=== PATIENT | female | born 1995 | race Caucasian/White ===

== ENCOUNTER 2017-02-02 20:18 | Emergency (ER) | payer OTHER ==
[~2017-02-02] VITALS: Ht 162.6 cm; Wt 70.8 kg
[2017-02-02 20:28] VITALS: Ht 162.6 cm; Wt 70.8 kg
[2017-02-03] MEDS ORDERED: ONDANSETRON 4 MG INJ IV STA (00:04)
[2017-02-03] MEDS ORDERED: FAMOTIDINE 20 MG INJ IV STA (00:04)
[2017-02-03] MEDS ORDERED: SOD CHLORIDE 0.9% 1,000 ML IV STA (00:04)
[2017-02-03 00:19] LABS: URINE BLOOD (Dip) POC Negative (NEGATIVE)
[2017-02-03 00:27] LABS: ADD SCAN DIFF NO
[2017-02-03] MEDS ORDERED: ACETAMINOPHEN 325 MG TAB PO ONE (00:30)
[2017-02-03 00:35] LABS: ADD UMIC YES; URINE BILIRUBIN (Dip) 1+ (NEGATIVE); URINE BLOOD (Dip) NEGATIVE (NEGATIVE); URINE COLOR YELLOW (YELLOW); URINE GLUCOSE (Dip) NEGATIVE (NEGATIVE); URINE KETONES (Dip) 15 (NEGATIVE); URINE LEUKOCYTE ESTERASE (Dip) TRACE (NEGATIVE); URINE NITRITE (Dip) NEGATIVE (NEGATIVE); URINE TOTAL PROTEIN (Dip) TRACE (NEGATIVE); URINE UROBILINOGEN (Dip) 1.0 E.U./dL (0.1-1.0)
[2017-02-03 00:52] LABS: ICTOTEST NEGATIVE (NEGATIVE)
[2017-02-03 00:53] LABS: BACTERIA,URINE RARE; MUCUS,URINE MODERATE; SQUAMOUS EPITHELIAL CELL,UR FEW; URINE RBCS 0-2 /HPF (0)
[2017-02-03 00:56] LABS: BASOPHILS % 0.4 % (0.0-2.0); EOSINOPHILS # 0.2 10^3/ul (0.0-0.5); EOSINOPHILS % 2.2 % (0.0-7.0); HEMATOCRIT 38.3 % (37.0-47.0); HEMOGLOBIN 11.9 g/dl (12.0-16.0); LYMPHOCYTES # 1.8 10^3/ul (0.8-2.9); LYMPHOCYTES % 22.7 % (18.0-55.0); MEAN CORPUSCULAR HEMOGLOBIN 24.1 pg (29.0-33.0); MEAN CORPUSCULAR HGB CONC 31.1 g/dl (32.0-37.0); MEAN CORPUSCULAR VOLUME 77.5 fl (72.0-104.0); MEAN PLATELET VOLUME 9.4 fl (7.4-10.4); MONOCYTE # 1.1 10^3/ul (0.3-0.9); MONOCYTES % 13.8 % (0.0-13.0); NEUTROPHIL # 4.7 10^3/ul (1.6-7.5); NEUTROPHILS % 60.6 % (30.0-74.0); PLATELET COUNT 403 10^3/UL (140-415); RED BLOOD COUNT 4.94 10^6/ul (4.20-5.40); WHITE BLOOD COUNT 7.7 10^3/ul (4.8-10.8)
[2017-02-03 00:57] LABS: ALBUMIN/GLOBULIN RATIO 1.14; BILIRUBIN,INDIRECT 0.1 mg/dl (0-1.1); BILIRUBIN,TOTAL 0.1 mg/dl (0.2-1.3); CALCIUM 8.6 mg/dl (8.4-10.2); CREATININE 0.51 mg/dl (0.44-1.00); POTASSIUM 3.3 mmol/L (3.5-5.1); TOTAL PROTEIN 7.5 g/dl (6.1-8.1)
--- NOTE | 2017-02-03 01:45 | RADRPT ---
PROCEDURE: US abdomen limited right upper quadrant. CLINICAL INDICATION: Positive De La Cruz's sign, 9 weeks TECHNIQUE: Multiple real-time images were acquired of the patient's right upper quadrant of the ab domen utilizing a high resolution transducer. COMPARISON: None FINDINGS: No gallstones are identified within the gallbladder. There is no pericholecystic fluid or gallbladder wall thickening. The common bile duct measures 3.1 mm in maximal dimension. No free fluid is identified. No abnormality is seen in the liver. The pancreas is not seen due to b owel gas. The visualized inferior vena cava is unremarkable. The right kidney measures 11.2 cm in length and is unremarkable. IMPRESSION: Pancreas not seen. Otherwise unremarkable examination. RPTAT: HJES .Mt Hill MD, Date Time Electronically viewed and signed by .Mt Hill MD, on 02/03/2017 01:45 .S/
--- NOTE | 2017-02-03 02:58 | ERD ---
ER Documentation Chief Complaint Date/Time DATE: 02/03/17 TIME: 02:50 Chief Complaint cough x 2 days HPI This pleasant 21-year-old female presents with right upper quadrant pain radiating to her right back, nausea, vomiting, cough, congestion, and rhinorrhea. Patient reports that she is 9 weeks today 1 para 0. Reports difficulty eating and drinking today related to vomiting. Denies pelvic pain, dysuria, vaginal bleeding. ROS All systems reviewed and are negative except as per history of present illness. Medications Home Meds Active Scripts Guaifenesin* (Robitussin*) 100 Mg/5 Ml Syrup, 200 MG PO Q6H Y for COUGH for 7 Days, ML Prov:JORDANA,IPLO 02/03/17 Famotidine* (Pepcid*) 20 Mg Tablet, 20 MG PO BID for 4 Days, TAB Prov:JORDANA,PILO 02/03/17 Allergies Allergies: Coded Allergies: No Known Allergy (Unverified , 12/23/15) PMhx/Soc Hx Alcohol Use: No Hx Substance Use: No Hx Tobacco Use: No Smoking Status: Never smoker Physical Exam Vitals Vitals stable, triage notes reviewed Physical Exam Const: No acute distress Head: Atraumatic Eyes: Normal Conjunctiva, PERRLA, EOMI ENT: Normal External Ears, Nose and Mouth. Mucous membranes moist Neck: Resp: Cardio: Abd: Abdomen soft, positive De La Cruz sign, negative psoas sign, negative pelvic tenderness ,negative CVA tenderness Skin: Back: No midline or flank tenderness Ext: Neur: Awake and alert Psych: Normal Mood and Affect Results 24 hrs Laboratory Tests Test 02/03/17 00:15 02/03/17 00:20 White Blood Count 7.710^3/ul Red Blood Count 4.9410^6/ul Hemoglobin 11.9g/dl Hematocrit 38.3% Mean Corpuscular Volume 77.5fl Mean Corpuscular Hemoglobin 24.1pg Mean Corpuscular Hemoglobin Concent 31.1g/dl Red Cell Distribution Width 15.0% Platelet Count 49364^3/UL Mean Platelet Volume 9.4fl Neutrophils % 60.6% Lymphocytes % 22.7% Monocytes % 13.8% Eosinophils % 2.2% Basophils % 0.4% Nucleated Red Blood Cells % 0.0/100WBC Neutrophils # 4.710^3/ul Lymphocytes # 1.810^3/ul Monocytes # 1.110^3/ul Eosinophils # 0.210^3/ul Basophils # 0.010^3/ul Nucleated Red Blood Cells # 0.010^3/ul Urine Color YELLOW Urine Clarity CLEAR Urine pH 6.0 Urine Specific [place] 1.025 Urine Ketones 15 Urine Nitrite NEGATIVE Urine Bilirubin 1+ Urine Ictotest NEGATIVE Urine Urobilinogen 1.0 E.U./dL Urine Leukocyte Esterase TRACE Urine Microscopic RBC 0-2/HPF Urine Microscopic WBC 0-2/HPF Urine Squamous Epithelial Cells FEW Urine Transitional Epithelial Cells Urine Bacteria RARE Urine Mucus MODERATE Urine Hemoglobin NEGATIVE Urine Glucose NEGATIVE% Urine Total Protein TRACE Sodium Level 136mmol/L Potassium Level 3.3mmol/L Chloride Level 104mmol/L Carbon Dioxide Level 24mmol/L Anion Gap 11 Blood Urea Nitrogen 6mg/dl Creatinine 0.51mg/dl Glucose Level 72mg/dl Calcium Level 8.6mg/dl Total Bilirubin 0.1mg/dl Direct Bilirubin 0.00mg/dl Indirect Bilirubin 0.1mg/dl Aspartate Amino Transf (AST/SGOT) 20IU/L Alanine Aminotransferase (ALT/SGPT) 26IU/L Alkaline Phosphatase 54IU/L Total Protein 7.5g/dl Albumin 4.0g/dl Globulin 3.50g/dl Albumin/Globulin Ratio 1.14 Lipase 90U/L Bedside Urine pH (LAB) 6.0 Bedside Urine Protein (LAB) 1+ Bedside Urine Glucose (UA) Negative Bedside Urine Ketones (LAB) 2+ Bedside Urine Blood Negative Bedside Urine Nitrite (LAB) Negative Bedside Urine Leukocyte Esterase (L Trace Current Medications Medications (Trade) Dose Ordered Sig/Rosemary Route PRN Reason Start Time Stop Time Status Last Admin Dose Admin Sodium Chloride (NS) 1,000 ml @ 1,000 mls/hr Q1H STAT IV 02/03/17 00:04 02/03/17 01:03 DC 02/03/17 00:19 Ondansetron HCl (Zofran Inj) 4 mg ONCE STAT IV 02/03/17 00:04 02/03/17 00:12 DC 02/03/17 00:19 Famotidine (Pepcid Iv) 20 mg ONCE STAT IV 02/03/17 00:04 02/03/17 00:12 DC 02/03/17 00:19 Acetaminophen (Tylenol Tab) 650 mg ONCE ONCE PO 02/03/17 00:30 02/03/17 00:31 DC 02/03/17 00:19 Interpretation text CBC shows no evidence of hemorrhage or infection Chemistry shows no evidence of significant electrolyte abnormalities or renal insufficiency Liver function tests shows no evidence of acute biliary or hepatic dysfunction Lipase shows no evidence of acute pancreatitis Urinalysis with trace leukocyte esterase, proteinuria, and ketones are consistent with nausea and vomiting. Procedures/MDM PROCEDURE: US abdomen limited right upper quadrant. CLINICAL INDICATION: Positive De La Cruz's sign, 9 weeks TECHNIQUE: Multiple real-time images were acquired of the patient's right upper quadrant of the abdomen utilizing a high resolution transducer. COMPARISON: None FINDINGS: No gallstones are identified within the gallbladder. There is no pericholecystic fluid or gallbladder wall thickening. The common bile duct measures 3.1 mm in maximal dimension. No free fluid is identified. No abnormality is seen in the liver. The pancreas is not seen due to bowel gas. The visualized inferior vena cava is unremarkable. The right kidney measures 11.2 cm in length and is unremarkable. IMPRESSION: Pancreas not seen. Otherwise unremarkable examination. RPTAT: HJES .Mt Hill MD, MD Date Time Electronically viewed and signed by .Mt Hill MD, MD on 02/03/2017 01:45 This pleasant 21-year-old female presents to emergency department with complaint of nausea vomiting and right upper quadrant pain. Patient is 9 weeks , , denies any vaginal discharge pelvic pain or back pain. Differential diagnosis includes but not limited to cholecystitis, pancreatitis, biliary colic, renal colic. Laboratory testing unremarkable for elevation in lipase, LFTs normal, BUN and creatinine normal. No electrolyte imbalance or evidence of acute blood loss, or infection. Urinalysis shows evidence of nausea and vomiting, without evidence of urinary tract infection. Ultrasound findings:No gallstones are identified within the gallbladder. There is no pericholecystic fluid or gallbladder wall thickening. The common bile duct measures 3.1 mm in maximal dimension. No free fluid is identified. No abnormality is seen in the liver. The pancreas is not seen due to bowel gas. The visualized inferior vena cava is unremarkable. The right kidney measures 11.2 cm in length and is unremarkable. Patient treated with a liter of normal saline, Zofran, acetaminophen, and Pepcid, reassessed after 90 minutes with improvement of symptoms. I feel patient can be managed in the outpatient setting, patient discharged with Pepcid, Robitussin for cough, I feel the patient is stable for discharge at this time. I have discussed results , examination findings, the treatment plan with the patient and family present prior to discharge. Indications for emergent reevaluation, side effects of medication were also discussed. All questions were answered. Patient verbalizes understanding and agrees with plan of care. Departure Diagnosis: Primary Impression: Right upper quadrant abdominal pain Additional Impression: URI (upper respiratory infection) URI type: unspecified viral URI Qualified Code: J06.9 - Viral upper respiratory tract infection Patient Instructions: Abdominal Pain, Early Additional Instructions: Thank you for for coming to [facility] for your care today. Please ask your nurse or provider if you have questions about your care today and do not leave until all your questions have been answered. Please use any medications given as directed and follow-up with your doctor (or the doctor you were referred to) in the next 2-3 days. If you do not have a primary care doctor you may follow up at the [facility] (listed below). You may also use motrin and tylenol as needed for fever and/or pain unless instructed otherwise by your provider or nurse. Indications for more urgent follow-up have been discussed, but you may return to the Emergency Department at ANY time for any worrisome or worsening symptoms. If you have abdominal pain, please know that no test or exam you received is perfect and you should follow up within 8 hours for continued pain. If you had any imaging studies today, such as an X-Ray or CT Scan, these studies will be reviewed later by a radiologist. You will be called if there are important findings that were not identified today, so make sure the contact information you provided at registration is correct. If you received any narcotic pain control medicine today, such as Vicodin, Morphine or Dilaudid, your coordination and judgment may be affected for a number of hours. Please do not drive or operate heavy machinery, and you may want someone to assist you at home. If you were given a prescription for narcotic medication, be aware that it is very addictive- use sparingly and only if necessary. PILO SILVEIRA Feb 03, 2017 02:58
[2017-02-03] MEDS ORDERED: FAMO-18 PO (02:59)
[2017-02-03] MEDS ORDERED: GUAI-637 PO (02:59)
[2017-02-03 03:10] VITALS: BP 97/51; PULSE 58; RESP 17; TEMP 98.9
== END 2017-02-03 03:10 | disposition home or self-care (01) ==
LOC: E/R 20:18 → FTE 02-03 03:10
DX: O26.891 Other specified pregnancy related conditions, first trimester (principal); R10.11 Right upper quadrant pain; O99.511 Diseases of the respiratory system complicating pregnancy, first trimester; J06.9 Acute upper respiratory infection, unspecified; O21.9 Vomiting of pregnancy, unspecified; Z3A.09 9 weeks gestation of pregnancy
CPT/HCPCS: 76705; 80053; 81001; 83690; 85025; J2405; J7030; Z7610; 36415; 81003; 96374; 96375

== ENCOUNTER 2017-06-27 22:05 | Outpatient (CLI) | payer OTHER ==
[~2017-06-27] VITALS: Ht 162.6 cm; Wt 81.2 kg
[~2017-06-27 22:05] MED LIST: FAMO-96 PO; GUAI-637 PO
[2017-06-27 22:08] VITALS: Ht 162.6 cm; Wt 81.2 kg
[2017-06-27 22:28] VITALS: BP 114/60; PULSE 85; RESP 19
[2017-06-27] MEDS ORDERED: ACETAMINOPHEN 325 MG TAB PO STA (22:47)
--- NOTE | 2017-06-27 23:40 | PN ---
Triage Information Date/Time Reason for visit: Abd/pelvic pain Weeks of Gestation 31 weeks and 5 days of gestation presents with right-sided abdominal pain which started today at 12 noon /Para 2 para 1 Diabetes: none Hypertention: none Objective Vital Signs Date Time Temp Pulse Resp B/P Pulse Ox O2 Delivery O2 Flow Rate FiO2 06/27/17 22:28 98.1 85 19 114/60 Room Air Heart Rate: 140's Heart Rate Comments NST is reactive Contractions: None Results/Medications Imaging Results PROCEDURE: Right upper quadrant ultrasound. CLINICAL INDICATION: Right-sided abdominal pain. TECHNIQUE: Multiple real-time longitudinal and transverse images of the right upper quadrant of the abdomen were acquired utilizing a curved array transducer. Images were reviewed on a high-resolution PACS workstation. COMPARISON: None. FINDINGS: The pancreas is not well seen. The liver is normal in echogenicity. The liver measures 16.8 cm in length. No hepatic lesion or intrahepatic biliary ductal dilatation is seen. The portal vein is patent with hepatopetal flow. There may be minimal sludge in the gallbladder. No gallstone is identified. The gallbladder wall is not thickened. There is no pericholecystic fluid. The common bile duct measures 3 mm in diameter, not dilated. The right kidney measures 12.0 cm in length. Renal echogenicity is normal. There is no hydronephrosis, urinary calculus, or renal mass. The visualized portions of the aorta and IVC are unremarkable. IMPRESSION: 1. No evidence of cholelithiasis or cholecystitis. There may be minimal sludge in the gallbladder. 2. No biliary dilatation. 3. Poor visualization of the pancreas. RPTAT: HTAR .Ike Duffy MD, Date Time Electronically viewed and signed by .Ike Duffy MD, on 06/28/2017 01:21 .R/ CC: ALEXANDRA SALAS MD PROCEDURE: US OB biophysical profile. CLINICAL INDICATION: decreased movements TECHNIQUE: Multiple sonographic images of the pelvis were obtained. The images were reviewed on a PACS workstation. COMPARISON: No pertinent prior examinations were submitted for comparison. FINDINGS: There is a single viable intrauterine gestation. Cardiac activity is present with 148 beats per minute. There is a vertex presentation. The placenta is anterior. There is a increased amount of amniotic fluid with an LUCA = 22 cm. Biophysical profile: movement 2/2 tone 2/2. breathing 2/2 LUCA 2/2 Total 05/25 IMPRESSION: Normal biophysical profile. Polyhydramnios. RPTAT: HIKT . .Stone Barrett MD, MD Date Time Electronically viewed and signed by .Stone Barrett MD, MD on 06/28/2017 01:22 .T/ CC: ALEXANDRA SALAS MD Disposition: Discharge Assessment/Plan Abdominal ultrasound and biophysical profile to be done We will send for UA Follow-up with [facility] in 2-3 days VERENA CHAIREZ MD Jun 27, 2017 23:40
[2017-06-27 23:55] LABS: ADD UMIC YES; UR ASCORBIC ACID NEGATIVE (NEGATIVE); UR BILIRUBIN (Dip) NEGATIVE (NEGATIVE); UR BLOOD (Dip) NEGATIVE (NEGATIVE); UR CLARITY CLEAR (CLEAR); UR COLOR YELLOW (YELLOW); UR GLUCOSE (Dip) NEGATIVE (NEGATIVE); UR KETONES (Dip) NEGATIVE (NEGATIVE); UR LEUKOCYTE ESTERASE (Dip) 1+ Leu/ul (NEGATIVE); UR MUCUS FEW /HPF (NONE SEEN); UR NITRITE (Dip) NEGATIVE (NEGATIVE); UR RBC 1 /HPF (0-5); UR SPECIFIC GRAVITY (Dip) 1.024 (1.003-1.030); UR SQUAMOUS EPITHELIAL CELL FEW /HPF (FEW); UR TOTAL PROTEIN (Dip) NEGATIVE (NEGATIVE); UR UROBILINOGEN (Dip) 1+ mg/dL (NEGATIVE)
--- NOTE | 2017-06-28 01:21 | RADRPT ---
PROCEDURE: Right upper quadrant ultrasound. CLINICAL INDICATION: Right-sided abdominal pain. TECHNIQUE: Multiple real-time longitudinal and transverse images of the right upper quadrant of th e abdomen were acquired utilizing a curved array transducer. Images were reviewed on a high-resoluti on PACS workstation. COMPARISON: None. FINDINGS: The pancreas is not well seen. The liver is normal in echogenicity. The liver measures 16.8 cm in length. No hepatic lesion or in trahepatic biliary ductal dilatation is seen. The portal vein is patent with hepatopetal flow. There may be minimal sludge in the gallbladder. No gallstone is identified. The gallbladder wall is not thickened. There is no pericholecystic fluid. The common bile duct measures 3 mm in diameter, not dilated. The right kidney measures 12.0 cm in length. Renal echogenicity is normal. There is no hydronephro sis, urinary calculus, or renal mass. The visualized portions of the aorta and IVC are unremarkable. IMPRESSION: 1. No evidence of cholelithiasis or cholecystitis. There may be minimal sludge in the gallbladder. 2. No biliary dilatation. 3. Poor visualization of the pancreas. RPTAT: HTAR .Ike Duffy MD, MD Date Time Electronically viewed and signed by .Ike uDffy MD, on 06/28/2017 01:21 .R/
--- NOTE | 2017-06-28 01:23 | RADRPT ---
PROCEDURE: US OB biophysical profile. CLINICAL INDICATION: decreased movements TECHNIQUE: Multiple sonographic images of the pelvis were obtained. The images were reviewed on a PACS workstation. COMPARISON: No pertinent prior examinations were submitted for comparison. FINDINGS: There is a single viable intrauterine gestation. Cardiac activity is present with 148 beats per min [place]. There is a vertex presentation. The placenta is anterior. There is a increased amount of amniotic fluid with an LUCA = 22 cm. Biophysical profile: movement 2/2 tone 2/2. breathing 2/2 LUCA 2/2 Total 05/25 IMPRESSION: Normal biophysical profile. Polyhydramnios. RPTAT: HIKT . .Stone Barrett MD, Date Time Electronically viewed and signed by .Stone Barrett MD, on 06/28/2017 01:22 .T/
--- NOTE | 2017-06-28 02:20 | TRIAGE ---
OB Triage Datetime Report Generated by CPN: 06/28/2017 02:20 Datetime: 06/28/2017 01:29 Stage of : OB Triage Labor Evaluation Frequency: x4 Monitor Mode: External Duration (sec)2399: 40-80 Quality: Mild Resting Tone [place]: Relaxed Heart Rate FHR Baseline Rate: 135 Monitor Mode: External US Variability: Moderate 6-25 bpm Accelerations: 15X15 Decelerations: None Category: Category I Pain Assessment Pain Presence: None/Denies Pain Type: N/A Datetime: 06/28/2017 01:26 Stage of : OB Triage Datetime: 06/28/2017 01:11 Monitor Mode: External Pain Assessment Pain Presence: None/Denies Pain Type: N/A Datetime: 06/28/2017 01:00 Stage of : OB Triage Labor Evaluation Frequency: x3 Monitor Mode: External Duration (sec)2399: 40-50 Quality: Mild Resting Tone [place]: Relaxed Heart Rate FHR Baseline Rate: 135 Monitor Mode: External US Variability: Moderate 6-25 bpm Accelerations: 15X15 Decelerations: None Category: Category I Datetime: 06/28/2017 00:00 Stage of : OB Triage Labor Evaluation Frequency: 0 Monitor Mode: External Resting Tone [place]: Relaxed Heart Rate FHR Baseline Rate: 135 Monitor Mode: External US Variability: Moderate 6-25 bpm Accelerations: 15X15 Decelerations: None Category: Category I Datetime: 06/27/2017 23:26 Stage of : OB Triage Datetime: 06/27/2017 23:25 Stage of : OB Triage Monitor Mode: External US Datetime: 06/27/2017 23:04 Stage of : OB Triage Datetime: 06/27/2017 22:59 Labor Evaluation Frequency: x2 Monitor Mode: External Duration (sec)2399: 90-100 Quality: Mild Resting Tone [place]: Relaxed Heart Rate FHR Baseline Rate: 140 Monitor Mode: External US Variability: Moderate 6-25 bpm Accelerations: 15X15 Decelerations: None Category: Category I Datetime: 06/27/2017 22:38 Stage of : OB Triage Datetime: 06/27/2017 22:23 Assessment Type: Triage Maternal Assessment Level of Consciousness: Fully Conscious DTR's/Clonus: DTRs 2+; No Clonus Headache: Denies Blurred Vision: No Breath Sounds, Left: Clear and Equal Breath Sounds, Right: Clear and Equal Nausea/Vomiting: Denies RUQ Epigastric Pain: Denies Lower Extremities Edema: None Degree: None Upper Extremities Edema: None Degree: None Facial Edema: None Fall Risk Assessment History of Falling: (0) No Secondary Diagnosis: (15) Yes (Annotations: C/S X1 ) Ambulatory Aid: (0) Bedrest/Nurse Assist IV Therapy: (0) No Gait: (0) Normal/Bedrest/Immobile Mental Status: (0) Oriented to Own Ability Fall Score: 15 Fall Risk Score Definition: No Risk: No action required Datetime: 06/27/2017 22:21 Time of Arrival: 06/27/2017 21:52 EGA: 31.5 Arrived By: Wheelchair Arrived From: Home Chief Complaint: R sided abdominal pain. Movement: Present Contractions: Denies/Absent Rupture of Membranes: Denies Vaginal Bleeding: None Vaginal Discharge: Denies Recent Sexual Intercouse: Denies Abdominal Trauma: Not Applicable Patient Complaints: Other Time Provider Notified: 06/27/2017 22:38 Provider Notified: JOSUE Initial Plan: VS, EFM, gallbladder u/s, ua, bpp
== END 2017-06-28 01:45 | disposition home or self-care (01) ==
LOC: OBT 22:05 → L-D 22:07 → OBT 06-28 01:45
PROVIDERS: ATTEND Obstetrics & Gynecology
DX: O26.893 Other specified pregnancy related conditions, third trimester (principal); Z3A.31 31 weeks gestation of pregnancy; R10.31 Right lower quadrant pain
CPT/HCPCS: 76705; 76818; 81001; Z7500; Z7610; G0463

== ENCOUNTER 2017-08-05 10:47 | Outpatient (CLI) | payer OTHER ==
[~2017-08-05] VITALS: Ht 162.6 cm; Wt 84.3 kg
[2017-08-05 10:58] VITALS: Ht 162.6 cm; Wt 84.3 kg
[2017-08-05 11:02] VITALS: BP 128/71; PULSE 115
--- NOTE | 2017-08-05 13:16 | RADRPT ---
PROCEDURE: US OB biophysical profile. CLINICAL INDICATION: decreased movements, well-being TECHNIQUE: Multiple sonographic images of the pelvis were obtained. The images were reviewed on a PACS workstation. COMPARISON: US PELVIS 06/27/2017 FINDINGS: There is a single viable intrauterine gestation. Cardiac activity is present with 135 beats per min daysi. There is a vertex presentation. The placenta is anterior. There is no evidence of placental abruption. There is a normal amount of amniotic fluid with an LUCA = 11.2 cm. Biophysical profile: movement 2/2 tone 2/2. breathing 2/2 LUCA 2/2 Total 05/25 RPTAT: AA . IMPRESSION: Normal biophysical profile. . .Nathaniel Blancas MD, Date Time Electronically viewed and signed by .Nathaniel Blancas MD, MD on 08/05/2017 13:16 .S/
--- NOTE | 2017-08-05 13:19 | RADRPT ---
PROCEDURE: US OB. CLINICAL INDICATION: Size and dates TECHNIQUE: Multiple sonographic images of the pelvis and gravid uterus were obtained. The images were reviewed on a PACS workstation. COMPARISON: US PELVIS 06/27/2017 FINDINGS: There is a single viable intrauterine gestation. Cardiac activity is present with 135 beats per min daysi. There is a vertex presentation. The placenta is anterior. There is no evidence of placental abruption. There is a normal amount of amniotic fluid with an LUCA = 11.2 cm. Measurements were made in order to determine age. The results are as follows: BPD =9.5 cm HC =33.6 cm AC =33.5 cm FL =7.3 cm Estimated gestational age of approximately 38 weeks and 0 days based on ultrasound measurements. Clinical age: 37 weeks and 2 days. The estimated date of delivery is 08/19/17, based on ultrasound measurements. The EFW = 3280 g, 68.8%, based on LMP age. RPTAT: AA IMPRESSION: Single viable intrauterine gestation of approximately 38 weeks and 0 days based on ultrasound measu rements. .Nathaniel Blancas MD, Date Time Electronically viewed and signed by .Nathaniel Blancas MD, MD on 08/05/2017 13:19 .S/
--- NOTE | 2017-08-05 13:41 | TRIAGE ---
OB Triage Datetime Report Generated by CPN: 08/05/2017 13:41 Datetime: 08/05/2017 13:28 Pattern: Normal: <= 5 Contractions in 10 Minutes Resting Tone [place]: Relaxed Contraction Comments: no uc Heart Rate FHR Baseline Rate: 135 Monitor Mode: External US Variability: Moderate 6-25 bpm Accelerations: 15X15 Decelerations: None Category: Category I Datetime: 08/05/2017 12:57 Labor Evaluation Frequency: X3 Monitor Mode: External Duration (sec)2399: 40-50 Quality: Mild Pattern: Normal: <= 5 Contractions in 10 Minutes Resting Tone [place]: Relaxed Heart Rate FHR Baseline Rate: 135 Monitor Mode: External US Variability: Moderate 6-25 bpm Accelerations: 15X15 Decelerations: None Category: Category I Pain Assessment Pain Scale: 3 Pain Presence: Intermittent Pain Type: Contraction Pain Location: Abdomen Pain Goal: 3 Datetime: 08/05/2017 11:58 Labor Evaluation Frequency: x4 Monitor Mode: Palpation Duration (sec)2399: 40-60 Quality: Mild Pattern: Normal: <= 5 Contractions in 10 Minutes Resting Tone [place]: Relaxed Heart Rate FHR Baseline Rate: 145 Monitor Mode: External US Variability: Moderate 6-25 bpm Accelerations: 15X15 Decelerations: None Category: Category I Pain Assessment Pain Scale: 5 Pain Presence: Intermittent Pain Type: Contraction Pain Location: Abdomen Pain Goal: 3 Datetime: 08/05/2017 11:29 Vaginal Exam Dilatation (cms): 0.0 Exam By: [facility] Datetime: 08/05/2017 11:06 Assessment Type: Triage Maternal Assessment Level of Consciousness: Fully Conscious DTR's/Clonus: DTRs 2+; No Clonus Headache: Denies Blurred Vision: No Respiratory Effort: Unlabored; Regular Rhythm; Equal Expansion Breath Sounds, Left: Clear and Equal Breath Sounds, Right: Clear and Equal Nausea/Vomiting: Denies RUQ Epigastric Pain: Denies Facial Edema: None Fall Risk Assessment History of Falling: (0) No Secondary Diagnosis: (0) No Ambulatory Aid: (0) Bedrest/Nurse Assist IV Therapy: (0) No Gait: (0) Normal/Bedrest/Immobile Mental Status: (0) Oriented to Own Ability Fall Score: 0 Fall Risk Score Definition: No Risk: No action required Datetime: 08/05/2017 11:03 Time of Arrival: 08/05/2017 10:40 EGA: 37.2 Arrived By: Ambulatory Arrived From: Other Unit in Hospital Chief Complaint: pt. came [facility] hospital from [facility] due to uc, pain level 8/10, uc start yesterd ay 1600pm, q5 mins apart, deny srom, deny vag bleeding Movement: Present Contractions: Irregular Time Contractions Began: 08/04/2017 16:00 Rupture of Membranes: Denies Vaginal Bleeding: None Vaginal Discharge: Denies Recent Sexual Intercouse: Denies Abdominal Trauma: Not Applicable Patient Complaints: Contractions Time Provider Notified: 08/05/2017 11:38 Provider Notified: Initial Plan: r/o labor Datetime: 06/27/2017 22:23 Fall Score: 15 Fall Risk Score Definition: No Risk: No action required Datetime: 06/27/2017 22:21 EGA: 31.5
--- NOTE | 2017-08-05 13:47 | CONS ---
Date/Time of Note Date/Time of Note DATE: 08/05/17 TIME: 13:40 Consultation Date/Type/Reason Admit Date/Time August 05, 2017 OB triage consult This patient is a 22 years old 2 para 1 with estimated date of confinement of August 24, 2017 which makes her 37 weeks and 2 days today. She had one previous section . She came to OB triage complaining of contractions since midnight. On examination she is well-developed well-nourished lady with body weight is 84.3 kg. Her vital signs appear to be normal with blood pressure 128/71 pulse rate 115 respiration of 18 temperature 98.4. Her abdomen is soft she has very rare contractions. heart tone is normal with good variability and accelerations no decelerations. On pelvic examination cervix was closed and long and hollowing with intact membrane. Constitutional: No chills, No diaphoresis, No disoriented, No febrile, No improved, No no complaints, No other, No poor po, No requiring IVF, No requiring O2 Eyes: No discharge, No no complaints, No other, No pain, No redness, No visual change ENT: No bleeding, No congestion, No discharge, No dysphagia, No no complaints, No other, No pain, No sore throat Respiratory: No cough, No no complaints, No other, No pain, No pleuritic pain, No shortness of breath, No sputum, No wheezing Cardiovascular: No chest pain, No edema, No lightheadedness, No no complaints, No orthopenea, No other, No palpitations, No paroxysmal nocturnal dyspnea Gastrointestinal: No blood, No constipation, No decreased appetite, No diarrhea , No flatus, No nausea, No no complaints, No other, No pain, No passing stool, No vomiting Genitourinary: other (As I mentioned on pelvic examination the cervix was closed long with intact membrane), No bleeding, No discharge, No dysuria, No flank pain, No hematuria, No no complaints Musculoskeletal: No back pain, No bone/joint pain, No neck pain, No no complaints, No other, No restricted range of motion, No swelling Skin: No bruising, No erythema, No laceration, No no complaints, No other, No pruritis, No rash, No skin lesions Neurologic: No confusion, No dizziness, No focal-weakness, No headache, No no complaints, No other, No seizure, No syncope Endocrine: No dry skin, No no complaints, No other, No polydypsia, No polyuria , No temp intolerance Additional Comments On ultrasound study the result is single viable intrauterine gestation with cardiac activity of 135 bpm in vertex presentation. placenta was anterior no evidence of abruptio , her amniotic fluid index was 11.2 cm her estimated weight was 3280 g which makes her 68.8 percentile. Her biophysical profile was 8/8-. Disposition. With these normal finding patient was informed of our test results and she will be discharged home to be followed by her physician she is advised to return to triage in case of repeated contractions vaginal bleeding any evidence of labor or very low movement. End of dictation Social History Smoking Status: Never smoker Exam/Review of Systems Vital Signs Vitals Vital Signs Date Time Temp Pulse Resp B/P Pulse Ox O2 Delivery O2 Flow Rate FiO2 08/05/17 11:02 98.1 115 128/71 Room Air CARSON SAXENA MD Aug 05, 2017 13:47
== END 2017-08-05 13:40 | disposition home or self-care (01) ==
LOC: OBT 10:47 → L-D 10:47 → OBT 13:40
PROVIDERS: ATTEND Obstetrics & Gynecology
DX: O62.9 Abnormality of forces of labor, unspecified (principal); Z3A.37 37 weeks gestation of pregnancy
CPT/HCPCS: 76815; 76818

== ENCOUNTER 2017-08-14 20:17 | Outpatient (CLI) | payer OTHER ==
[~2017-08-14] VITALS: Ht 160 cm; Wt 85.1 kg
[2017-08-14 20:50] VITALS: Ht 160 cm; Wt 85.1 kg
[2017-08-14 20:51] VITALS: BP 124/77; PULSE 96; RESP 18
--- NOTE | 2017-08-14 23:10 | RADRPT ---
PROCEDURE: US OB. CLINICAL INDICATION: Size and dates , labor TECHNIQUE: Multiple sonographic images of the pelvis and gravid uterus were obtained. The images were reviewed on a PACS workstation. COMPARISON: US PELVIS 08/05/2017 FINDINGS: There is a single viable intrauterine gestation. Cardiac activity is present with 154 beats per min daysi. There is a vertex presentation. The placenta is anterior. There is no evidence for an abruption or placenta previa. There is a normal amount of amniotic fluid with an LUCA = 13.9 cm. Measurements were made in order to determine age. The results are as follows: BPD =9.5 cm HC =33.7 cm AC =33.9 cm FL =7.2 cm Estimated gestational age of approximately 38 weeks and 0 days based on ultrasound measurements. Clinical age: 38 weeks and 4 days. The estimated date of delivery is 08/28/2017, based on ultrasound measurements. The EFW = 3289 g, 44%, based on LMP age. RPTAT: AA IMPRESSION: Single viable intrauterine gestation of approximately 38 weeks and 0 days based on ultrasound measu rements. .Nathaniel Blancas MD, Date Time Electronically viewed and signed by .Nathaniel Blancas MD, on 08/14/2017 23:09 .S/
[2017-08-15] MEDS ORDERED: TERBUTALINE 1 MG/ML INJ SC ONE (00:30)
--- NOTE | 2017-08-15 01:26 | PN ---
Triage Information Date/Time Reason for visit: Uterine contractions Weeks of Gestation 38+4 /Para 2/2 (first delivery w/twins) Diabetes: none Hypertention: none Additional information Hx of C/S x1. Reports feeling UCs since this AM. Reports normal FM, denies LOF or VB Objective Vital Signs Date Time Temp Pulse Resp B/P Pulse Ox O2 Delivery O2 Flow Rate FiO2 08/14/17 20:51 98.0 96 18 124/77 Room Air Heart Rate: 130's Heart Rate Comments moderate variability, +accels, no decels Contractions: < 5 Minutes Apart Exam /-1, unchanged on serial exams Results/Medications Imaging Results PROCEDURE: US OB. CLINICAL INDICATION: Size and dates , labor TECHNIQUE: Multiple sonographic images of the pelvis and gravid uterus were obtained. The images were reviewed on a PACS workstation. COMPARISON: US PELVIS 08/05/2017 FINDINGS: There is a single viable intrauterine gestation. Cardiac activity is present with 154 beats per minute. There is a vertex presentation. The placenta is anterior. There is no evidence for an abruption or placenta previa. There is a normal amount of amniotic fluid with an LUCA = 13.9 cm. Measurements were made in order to determine age. The results are as follows: BPD = 9.5 cm HC = 33.7 cm AC = 33.9 cm FL = 7.2 cm Estimated gestational age of approximately 38 weeks and 0 days based on ultrasound measurements. Clinical age: 38 weeks and 4 days. The estimated date of delivery is 08/28/2017, based on ultrasound measurements. The EFW = 3289 g, 44%, based on LMP age. RPTAT: AA IMPRESSION: Single viable intrauterine gestation of approximately 38 weeks and 0 days based on ultrasound measurements. Disposition: Discharge Assessment/Plan Pt in early prodromal labor with no cervical change on serial exams. On discussing mode of delivery at length with pt including the R/B of both Repeat C /S and TOLAC and ensuring pt understands the risk of uterine rupture with labor , pt strongly desires TOLAC. She states, however, that her OB provider recommends C/S. Pt would like to speak with her provider more regarding her wishes before being delivered by C/S. Thus, pt given Terbutaline to stop contractions until appt w/provider. Following Terbutaline, pt states contractions have resolved. FWB reassuring. Reactive NST, nl LUCA. Plan for pt to f/up as scheduled with primary provider in 2d. Strict return precautions reviewed including Labor, ROM and FKC. Questions answered to patient's satisfaction. Pt appropriate for d/c home at this time. CARLOS MAGUIRE MD Aug 15, 2017 01:26
--- NOTE | 2017-08-15 05:21 | TRIAGE ---
OB Triage Datetime Report Generated by CPN: 08/15/2017 05:21 Datetime: 08/15/2017 01:06 Stage of : OB Triage Datetime: 08/15/2017 01:04 Pain Assessment Pain Scale: 0 Pain Presence: None/Denies Pain Goal: 3 Datetime: 08/15/2017 00:02 Stage of : OB Triage Datetime: 08/14/2017 23:52 Vaginal Exam Dilatation (cms): 1.0 Effacement (%): 70 Station: -1 Exam By: Natalia Colon RN Vaginal Bleeding: None Cervix, Consistency: Soft Cervix, Position: Posterior Datetime: 08/14/2017 23:16 Vaginal Exam Dilatation (cms): 1.0 Effacement (%): 70 Station: -1 Datetime: 08/14/2017 21:10 Heart Rate Monitor Mode: External US Datetime: 08/14/2017 20:56 Stage of : OB Triage Datetime: 08/14/2017 20:52 Stage of : OB Triage Datetime: 08/14/2017 20:47 Vaginal Exam Dilatation (cms): 1.0 Effacement (%): 70 Station: -1 Exam By: Natalia Colon RN Vaginal Bleeding: None Cervix, Consistency: Soft Cervix, Position: Posterior Datetime: 08/14/2017 20:43 Assessment Type: Triage Maternal Assessment Level of Consciousness: Fully Conscious DTR's/Clonus: DTRs 2+; No Clonus Headache: Denies Blurred Vision: No Respiratory Effort: Unlabored; Regular Rhythm; Equal Expansion Breath Sounds, Left: Clear and Equal Breath Sounds, Right: Clear and Equal Nausea/Vomiting: Denies RUQ Epigastric Pain: Denies Lower Extremities Edema: None Degree: None Upper Extremities Edema: None Degree: None Facial Edema: None Fall Risk Assessment History of Falling: (0) No Secondary Diagnosis: (0) No Ambulatory Aid: (0) Bedrest/Nurse Assist IV Therapy: (0) No Gait: (0) Normal/Bedrest/Immobile Mental Status: (0) Oriented to Own Ability Fall Score: 0 Fall Risk Score Definition: No Risk: No action required Datetime: 08/14/2017 20:40 Labor Evaluation Monitor Mode: External Contraction Comments: Applied Heart Rate Monitor Mode: External US Comments: Applied Datetime: 08/14/2017 20:29 Time of Arrival: 08/14/2017 20:11 EGA: 38.4 Arrived By: Wheelchair Arrived From: Home Chief Complaint: UC's since am. (Annotations: Data stored by CPN on behalf of user) Movement: Present Contractions: Irregular Time Contractions Began: 08/14/2017 06:00 Rupture of Membranes: Denies Vaginal Bleeding: None Vaginal Discharge: Denies Recent Sexual Intercouse: Denies Abdominal Trauma: Not Applicable Patient Complaints: Contractions Time Provider Notified: 08/14/2017 20:52 Provider Notified: Dr Choe Initial Plan: EFM X2, SVE, EFW Datetime: 08/05/2017 11:06 Fall Score: 0 Fall Risk Score Definition: No Risk: No action required Datetime: 08/05/2017 11:03 EGA: 37.2 Datetime: 06/27/2017 22:23 Fall Score: 15 Fall Risk Score Definition: No Risk: No action required Datetime: 06/27/2017 22:21 EGA: 31.5
== END 2017-08-15 01:19 | disposition home or self-care (01) ==
LOC: L-D 20:17 → OBT 20:17
PROVIDERS: ATTEND Obstetrics & Gynecology
DX: O62.9 Abnormality of forces of labor, unspecified (principal); Z3A.38 38 weeks gestation of pregnancy
CPT/HCPCS: 76815; 96372; J3105; Z7500; G0463

== ENCOUNTER 2017-08-18 05:17 | Inpatient (IN) | payer OTHER ==
[2017-08-18] VITALS (7 sets, daily range): BP systolic 107–120; BP diastolic 53–69; PULSE 69–96; RESP 18–19; Ht 162.6 cm; Wt 85.2 kg
[~2017-08-18] VITALS: Ht 162.6 cm; Wt 85.2 kg
[2017-08-18] MEDS ORDERED: LACTATED RINGER'S 1,000 ML IV SCH (05:48)
[2017-08-18] MEDS ORDERED: OXYTOCIN 30 UNITS/LR 500 ML IV PRN ×2 (06:00→09:00)
[2017-08-18] MEDS ORDERED: OXYTOCIN 30 UNITS/LR 500 ML IV SCH (06:00)
[2017-08-18] MEDS ORDERED: CEFAZOLIN 2 GM/50 ML (PMX) 50 ML IV SCH (06:00)
[2017-08-18] MEDS ORDERED: MISOPROSTOL 200 MCG TAB PR PRN ×2 (06:00→09:00)
[2017-08-18] MEDS ORDERED: METHYLERGONOVINE 0.2 MG INJ IM PRN ×2 (06:00→09:00)
[2017-08-18] MEDS ORDERED: CARBOPROST 250 MCG INJ IM PRN ×2 (06:00→09:00)
[2017-08-18] MEDS ORDERED: morphine SULFATE/PF (10 MG/10 ML) INJ ONE (07:38)
[2017-08-18] MEDS ORDERED: PHENYLephrine (100 MCG/ML) 5ML SYG ONE ×2 (07:39→08:07)
--- NOTE | 2017-08-18 07:43 | PREOPHP ---
DATE OF ADMISSION: 08/18/2017 HISTORY OF PRESENT ILLNESS: Ms. Juanito Nascimento is a 22-year-old 2, para 2, EDC 08/24/2017, i ntrauterine at 39 weeks and 1 day gestational age, admitted today for elective repeat cesa rean delivery. She denies any contractions, vaginal bleeding or discharge. Her care was l imited with Dr. Alexandra Choe. PAST MEDICAL HISTORY: None. MEDICATIONS: vitamins. PAST SURGICAL HISTORY: None. OBSTETRICAL HISTORY: x1 delivery secondary to twin gestation. GYNECOLOGIC HISTORY: 14, regular 3 to 4 days. Denies any sexually transmitted diseases. Sexually active with 1 partner. SOCIAL HISTORY: Denies any smoking, drugs or alcohol. FAMILY HISTORY: None. REVIEW OF SYSTEMS: All within normal except history of present illness. PHYSICAL EXAMINATION: HEENT: Within normal. LUNGS: CTA bilateral. CARDIOVASCULAR: S1, S2, regular rhythm. ABDOMEN: Gravid, nontender. Negative CVA bilateral. EXTREMITIES: Negative edema. No calf tenderness. PELVIC: Vaginal exam deferred. ASSESSMENT: A 22-year-old 2, para 2, intrauterine at 39 weeks and 1 day gestation al age, limited care, previous x1, desires elective repeat delivery, dec lined . PLAN: Consent for a repeat delivery. Risks, benefits and alternatives explained. All que stions were answered. Dictated By: ALEXANDRA ESPANA/SANDRA Conf#: [id number] DID#: [id number]
[2017-08-18] MEDS ORDERED: FENTAnyl 50 MCG/ML VIAL ONE ×2 (08:11→08:16)
--- NOTE | 2017-08-18 08:39 | SIPON ---
Date/Time of Note Date/Time of Note DATE: 08/18/17 TIME: 08:37 Operative Report Preoperative Diagnosis 22-year-old 2 para 2 interim at 39 weeks and 1 day gestational age previous 1 desires elective repeat delivery declined limited care Postoperative Diagnosis same Operation/Procedure Performed Repeat low transverse delivery Surgeon see signature line assistant accounting manager Dr. Blount Anesthesia: spinal Estimated blood loss: other (500) Transfusion Required none Specimen none Grafts/Implants none Complications none ALEXANDRA SALAS MD Aug 18, 2017 08:39
--- NOTE | 2017-08-18 08:39 | SIPON ---
Date/Time of Note Date/Time of Note DATE: 08/18/17 TIME: 08:37 Operative Report Preoperative Diagnosis 22-year-old 2 para 2 interim at 39 weeks and 1 day gestational age previous 1 desires elective repeat delivery declined limited care Postoperative Diagnosis same Operation/Procedure Performed Repeat low transverse delivery Surgeon see signature line bakery assistant Dr. Blount Anesthesia: spinal Estimated blood loss: other (500) Transfusion Required none Specimen none Grafts/Implants none Complications none ALEXANDRA SALAS MD Aug 18, 2017 08:39
--- NOTE | 2017-08-18 08:39 | SIPON ---
Date/Time of Note Date/Time of Note DATE: 08/18/17 TIME: 08:37 Operative Report Preoperative Diagnosis 22-year-old 2 para 2 interim at 39 weeks and 1 day gestational age previous 1 desires elective repeat delivery declined limited care Postoperative Diagnosis same Operation/Procedure Performed Repeat low transverse delivery Surgeon see signature line guest services assistant Dr. Blount Anesthesia: spinal Estimated blood loss: other (500) Transfusion Required none Specimen none Grafts/Implants none Complications none ALEXANDRA SALAS MD Aug 18, 2017 08:39
[2017-08-18] MEDS ORDERED: NALOXONE (0.4 MG/ML) INJ IV PRN (09:00)
[2017-08-18] MEDS ORDERED: KETOROLAC 30 MG INJ IV PRN (09:00)
[2017-08-18] MEDS ORDERED: ONDANSETRON 4 MG INJ IV PRN ×2 (09:00)
[2017-08-18] MEDS ORDERED: HYDROmorphONE 0.5 MG/0.5 ML SYG IV PRN ×2 (09:00)
[2017-08-18] MEDS ORDERED: DIPHENHYDRAMINE 50 MG INJ IV PRN ×2 (09:00)
[2017-08-18] MEDS ORDERED: FENTAnyl 50 MCG/ML VIAL IV PRN ×2 (09:00)
[2017-08-18] MEDS ORDERED: METOCLOPRAMIDE 10 MG INJ IV PRN (09:00)
[2017-08-18] MEDS ORDERED: LANOLIN 7 GM TUBE TOP PRN (09:00)
[2017-08-18] MEDS ORDERED: OXYCODONE/ACETAMINOPHEN (5/325) TAB PO PRN ×2 (09:00)
[2017-08-18] MEDS: CEFAZOLIN 2 GM/50 ML (PMX) 50 ML IV SCH ×2 (09:00→17:31)
[2017-08-18] MEDS: SENNA/DOCUSATE NA (8.6MG/50MG) TAB PO SCH ×2 (09:00→20:54)
[2017-08-18] MEDS: IBUPROFEN 600 MG TAB PO SCH ×2 (12:00→17:47)
[2017-08-18] MEDS: LACTATED RINGER'S 1,000 ML IV SCH ×3 (13:22→23:12)
--- NOTE | 2017-08-18 14:41 | OPR ---
DATE OF OPERATION: 08/18/2017 PRIMARY DIAGNOSES: A 22-year-old 2, para 2, intrauterine at 39 weeks and 1 day ge stational age, previous section x1, desires elective repeat delivery, declined VBA C, limited care. POSTOPERATIVE DIAGNOSES: A 22-year-old 2, para 2, intrauterine at 39 weeks and 1 day gestational age, previous section x1, desires elective repeat delivery, declin ed , limited care. PROCEDURE: Repeat low transverse delivery via Pfannenstiel incision. SURGEON: Dr. Choe. CARDIOVASCULAR DISEASE SPECIALIST: Dr. Blount ANESTHESIA: Spinal. COMPLICATIONS: None. ESTIMATED BLOOD LOSS: 500 mL. FINDINGS: A viable male, 9 and 9 respectively at 1 and 5 minutes, weight 8 pounds 2 ounces. Normal uterus, tubes and ovaries. PROCEDURE: After explaining the risks, benefits and alternatives, the patient had consent signed in chart. The patient was taken to the operating room where spinal anesthesia was found to be adequat e. She was then prepared and draped in normal sterile fashion in dorsal supine position with a left balderas tilt. A Pfannenstiel skin incision was then made with a scalpel and carried to the underlying layer of the fascia. The fascia was incised in the midline and the incision was extended laterally with Salinas scissors. The superior aspect of the fascial incision was grasped with curved clamps, heath vated and the underlying rectus muscles dissected off bluntly. Attention was then turned to the inf erior aspect of the incision which in similar fashion was grasped, tented up with curved clamps and the rectus muscles dissected off bluntly. The rectus muscles in midline, peritoneum ident ified, tented up and entered sharply with Metzenbaum scissors. The peritoneal incision was extended superiorly with good visualization of bladder. The bladder blade was then inserted and the vesicou terine peritoneum identified, grasped with pickups and entered sharply with Metzenbaum scissors. Th is incision was extended laterally and the bladder flap created digitally. The bladder blade was th en reinserted and the lower segment incised in transverse fashion with a scalpel. The uterine incis ion was extended laterally. The bladder blade was removed and the 's head delivered atraumati madelyn. The nose and mouth were suctioned and cord clamped and cut. The was handed off to [facility] agricultural education teacher. The placenta was then removed manually. The uterus exteriorized and cleared o f all clots and debris. The uterine incision was repaired with 1-0 chromic in a running locked fash ion. A second layer of same suture was used for imbrication obtaining excellent hemostasis. The ut erus was returned to the abdomen. The gutters were cleared of all clots. The peritoneum and rectus abdominis muscles were reapproximated with 3-0 Vicryl in interrupted fashion. The fascia was reapp roximated with 0 Vicryl in a running fashion. The subcutaneous tissue was reapproximated with 2-0 p jelly gut in a running fashion. The skin was closed with absorbable diego. The patient tolerated the procedure well. Sponge, lap and needle counts correct x2. The patient was taken to recovery ro in stable condition. Dictated By: ALEXANDRA ESPANA/SANDRA Conf#: [id number] DID#: [id number]
--- NOTE | 2017-08-18 14:41 | OPR ---
DATE OF OPERATION: 08/18/2017 PRIMARY DIAGNOSES: A 22-year-old 2, para 2, intrauterine at 39 weeks and 1 day ge stational age, previous section x1, desires elective repeat delivery, declined VBA C, limited care. POSTOPERATIVE DIAGNOSES: A 22-year-old 2, para 2, intrauterine at 39 weeks and 1 day gestational age, previous section x1, desires elective repeat delivery, declin ed , limited care. PROCEDURE: Repeat low transverse delivery via Pfannenstiel incision. SURGEON: Dr. Choe. FERRY PILOT: Dr. Blount ANESTHESIA: Spinal. COMPLICATIONS: None. ESTIMATED BLOOD LOSS: 500 mL. FINDINGS: A viable male, 9 and 9 respectively at 1 and 5 minutes, weight 8 pounds 2 ounces. Normal uterus, tubes and ovaries. PROCEDURE: After explaining the risks, benefits and alternatives, the patient had consent signed in chart. The patient was taken to the operating room where spinal anesthesia was found to be adequat e. She was then prepared and draped in normal sterile fashion in dorsal supine position with a left balderas tilt. A Pfannenstiel skin incision was then made with a scalpel and carried to the underlying layer of the fascia. The fascia was incised in the midline and the incision was extended laterally with Salinas scissors. The superior aspect of the fascial incision was grasped with curved clamps, heath vated and the underlying rectus muscles dissected off bluntly. Attention was then turned to the inf erior aspect of the incision which in similar fashion was grasped, tented up with curved clamps and the rectus muscles dissected off bluntly. The rectus muscles in midline, peritoneum ident ified, tented up and entered sharply with Metzenbaum scissors. The peritoneal incision was extended superiorly with good visualization of bladder. The bladder blade was then inserted and the vesicou terine peritoneum identified, grasped with pickups and entered sharply with Metzenbaum scissors. Th is incision was extended laterally and the bladder flap created digitally. The bladder blade was th en reinserted and the lower segment incised in transverse fashion with a scalpel. The uterine incis ion was extended laterally. The bladder blade was removed and the 's head delivered atraumati madelyn. The nose and mouth were suctioned and cord clamped and cut. The was handed off to [facility] site controller. The placenta was then removed manually. The uterus exteriorized and cleared o f all clots and debris. The uterine incision was repaired with 1-0 chromic in a running locked fash ion. A second layer of same suture was used for imbrication obtaining excellent hemostasis. The ut erus was returned to the abdomen. The gutters were cleared of all clots. The peritoneum and rectus abdominis muscles were reapproximated with 3-0 Vicryl in interrupted fashion. The fascia was reapp roximated with 0 Vicryl in a running fashion. The subcutaneous tissue was reapproximated with 2-0 p jelly gut in a running fashion. The skin was closed with absorbable diego. The patient tolerated the procedure well. Sponge, lap and needle counts correct x2. The patient was taken to recovery ro in stable condition. Dictated By: ALEXANDRA ESPANA/SANDRA Conf#: [id number] DID#: [id number]
--- NOTE | 2017-08-18 14:41 | OPR ---
DATE OF OPERATION: 08/18/2017 PRIMARY DIAGNOSES: A 22-year-old 2, para 2, intrauterine at 39 weeks and 1 day ge stational age, previous section x1, desires elective repeat delivery, declined VBA C, limited care. POSTOPERATIVE DIAGNOSES: A 22-year-old 2, para 2, intrauterine at 39 weeks and 1 day gestational age, previous section x1, desires elective repeat delivery, declin ed , limited care. PROCEDURE: Repeat low transverse delivery via Pfannenstiel incision. SURGEON: Dr. Choe. ROD MILL TENDER: Dr. Blount ANESTHESIA: Spinal. COMPLICATIONS: None. ESTIMATED BLOOD LOSS: 500 mL. FINDINGS: A viable male, 9 and 9 respectively at 1 and 5 minutes, weight 8 pounds 2 ounces. Normal uterus, tubes and ovaries. PROCEDURE: After explaining the risks, benefits and alternatives, the patient had consent signed in chart. The patient was taken to the operating room where spinal anesthesia was found to be adequat e. She was then prepared and draped in normal sterile fashion in dorsal supine position with a left balderas tilt. A Pfannenstiel skin incision was then made with a scalpel and carried to the underlying layer of the fascia. The fascia was incised in the midline and the incision was extended laterally with Salinas scissors. The superior aspect of the fascial incision was grasped with curved clamps, heath vated and the underlying rectus muscles dissected off bluntly. Attention was then turned to the inf erior aspect of the incision which in similar fashion was grasped, tented up with curved clamps and the rectus muscles dissected off bluntly. The rectus muscles in midline, peritoneum ident ified, tented up and entered sharply with Metzenbaum scissors. The peritoneal incision was extended superiorly with good visualization of bladder. The bladder blade was then inserted and the vesicou terine peritoneum identified, grasped with pickups and entered sharply with Metzenbaum scissors. Th is incision was extended laterally and the bladder flap created digitally. The bladder blade was th en reinserted and the lower segment incised in transverse fashion with a scalpel. The uterine incis ion was extended laterally. The bladder blade was removed and the 's head delivered atraumati madelyn. The nose and mouth were suctioned and cord clamped and cut. The was handed off to [facility] basket patcher. The placenta was then removed manually. The uterus exteriorized and cleared o f all clots and debris. The uterine incision was repaired with 1-0 chromic in a running locked fash ion. A second layer of same suture was used for imbrication obtaining excellent hemostasis. The ut erus was returned to the abdomen. The gutters were cleared of all clots. The peritoneum and rectus abdominis muscles were reapproximated with 3-0 Vicryl in interrupted fashion. The fascia was reapp roximated with 0 Vicryl in a running fashion. The subcutaneous tissue was reapproximated with 2-0 p jelly gut in a running fashion. The skin was closed with absorbable diego. The patient tolerated the procedure well. Sponge, lap and needle counts correct x2. The patient was taken to recovery ro in stable condition. Dictated By: ALEXANDRA ESPANA/SANDRA Conf#: [id number] DID#: [id number]
[2017-08-18] MEDS ORDERED: INFLUENZA VIRUS VACCINE 0.5 ML (DISPENSING) IM* ONE (17:00)
[2017-08-18] MEDS: KETOROLAC 30 MG INJ IV PRN (20:54)
[2017-08-19] VITALS: BP 107/53; PULSE 75; RESP 18
[2017-08-19] MEDS: CEFAZOLIN 2 GM/50 ML (PMX) 50 ML IV SCH (02:02)
[2017-08-19 04:00] VITALS: BP 115/58; PULSE 73; RESP 18
[2017-08-19] MEDS: IBUPROFEN 600 MG TAB PO SCH ×5 (06:00→23:43)
[2017-08-19] MEDS: KETOROLAC 30 MG INJ IV PRN (06:29)
[2017-08-19 08:20] VITALS: BP 127/58; PULSE 82; RESP 16
[2017-08-19] MEDS ORDERED: INFLUENZA VIRUS VACCINE 0.5 ML SYG IM* ONE (09:00)
[2017-08-19] MEDS: SENNA/DOCUSATE NA (8.6MG/50MG) TAB PO SCH ×2 (09:29→21:05)
[2017-08-19 16:00] VITALS: BP 126/78; PULSE 64; RESP 16
--- NOTE | 2017-08-19 16:34 | QN ---
Documentation Comment progress note pod 1 patient seen and evaluated no complaints vs stable afebrile abd c/d/i no distention, non tender extremity no edema no calf tenderness a/ sp cd pod 1 doing well p/ iron supplement ALEXANDRA SALAS MD Aug 19, 2017 16:34
[2017-08-19 20:00] VITALS: BP 129/71; PULSE 95; RESP 18
[2017-08-19] MEDS: FERROUS SULFATE (EC) 325 MG TAB PO SCH (21:05)
[2017-08-20 04:00] VITALS: BP 111/63; PULSE 81; RESP 19
[2017-08-20] MEDS: IBUPROFEN 600 MG TAB PO SCH ×3 (05:34→17:57)
--- NOTE | 2017-08-20 05:42 | QN ---
Documentation Comment Progress note postop day 2 Patient was seen and evaluated awake alert oriented 3 positive ambulation tired diet positive flatulence positive bowel movement Vital signs stable afebrile Abdomen clean dry and intact negative distention nontender Extremity negative edema no calf tenderness Assessment status post repeat transverse delivery postop day 2 stable afebrile Plan discharge home tomorrow follow-up in the office in 2 weeks ALEXANDRA SALAS MD Aug 20, 2017 05:42
--- NOTE | 2017-08-20 05:45 | PD.PPDC ---
PODIATRIC MEDICINE DOCTOR Discharge Instruction Condition Patient Condition: Good Diet Diet: Resume Regular Diet Activity/Restrictions Activity: Normal Activity May Shower Restrictions: No Exercising No Lifting No Driving No Sexual Activity Nothing in the Vagina No [place] No Tampons, douche Follow-up Follow-up with Physician: 2, Week/Weeks Return to clinic for ORTHOPAEDIC SURGEON Instructions: Fever greater than 101 Chills Worsening abdominal pain Excessive Vaginal Bleeding More than 2 pads per hour Unable to tolerate diet OB Instructions: Breast Tenderness Depression Blurried Vision Headache Surgical Instructions: Incisional Drainage Incisional Redness ALEXANDRA SALAS MD Aug 20, 2017 05:45
--- NOTE | 2017-08-20 05:45 | PD.PPDC ---
DEPARTMENT OPERATIONS MANAGER Discharge Instruction Condition Patient Condition: Good Diet Diet: Resume Regular Diet Activity/Restrictions Activity: Normal Activity May Shower Restrictions: No Exercising No Lifting No Driving No Sexual Activity Nothing in the Vagina No [place] No Tampons, douche Follow-up Follow-up with Physician: 2, Week/Weeks Return to clinic for SAMPLE WRAPPER Instructions: Fever greater than 101 Chills Worsening abdominal pain Excessive Vaginal Bleeding More than 2 pads per hour Unable to tolerate diet OB Instructions: Breast Tenderness Depression Blurried Vision Headache Surgical Instructions: Incisional Drainage Incisional Redness ALEXANDRA SALAS MD Aug 20, 2017 05:45
--- NOTE | 2017-08-20 05:45 | PD.PPDC ---
FOOD CONCESSION MANAGER Discharge Instruction Condition Patient Condition: Good Diet Diet: Resume Regular Diet Activity/Restrictions Activity: Normal Activity May Shower Restrictions: No Exercising No Lifting No Driving No Sexual Activity Nothing in the Vagina No [place] No Tampons, douche Follow-up Follow-up with Physician: 2, Week/Weeks Return to clinic for CONSTRUCTION MILLWRIGHT Instructions: Fever greater than 101 Chills Worsening abdominal pain Excessive Vaginal Bleeding More than 2 pads per hour Unable to tolerate diet OB Instructions: Breast Tenderness Depression Blurried Vision Headache Surgical Instructions: Incisional Drainage Incisional Redness ALEXANDRA SALAS MD Aug 20, 2017 05:45
[2017-08-20] MEDS ORDERED: OXYTOCIN 30 UNITS/LR 500 ML BAG IV ONE (07:00)
[2017-08-20] MEDS ORDERED: EPHEDrine SULFATE 50 MG/5 ML SYG ONE (07:00)
--- NOTE | 2017-08-20 07:32 | DS ---
DATE OF ADMISSION: 08/18/2017 DATE OF DISCHARGE: 08/21/2017 PRIMARY DIAGNOSIS: A 22-year-old 2, para 2, intrauterine at 39 weeks' gestational age, previous section x1, desires elective repeat delivery. Declined vaginal bir th after . PROCEDURE: Repeat low transverse delivery. CONDITION ON DISCHARGE: Stable. ACTIVITY: None per vagina, no heavy lifting x6 weeks. DIET: Regular. MEDICATIONS ON DISCHARGE 1. Motrin. 2. Percocet. 3. Iron. 4. Colace. DISCHARGE SUMMARY: Ms. Shakeel Nascimento is a 22-year-old 2, para 3, status post repeat low gonsalves sverse delivery on 08/18/2017. She had a viable male, 9 and 9 respectively at 1 and 5 minutes, weight 8 pounds 7 ounces. She had an uneventful postop day 1 and 2. She was discharged on postop day 3. Her incision is clean, dry, and intact. She is ambulating, tolerating diet, posit anu flatulence, positive bowel movement. She will follow up in the office in 2 weeks, first postop/ postop care. Dictated By: ALEXANDRA ESPANA/SANDRA Conf#: [id number] DID#: [id number]
[2017-08-20 08:20] VITALS: BP 129/70; PULSE 66; RESP 16
[2017-08-20] MEDS: SENNA/DOCUSATE NA (8.6MG/50MG) TAB PO SCH ×2 (08:51→21:31)
[2017-08-20] MEDS: FERROUS SULFATE (EC) 325 MG TAB PO SCH ×2 (08:51→21:31)
[2017-08-20 16:00] VITALS: BP 117/61; PULSE 73; RESP 16
[2017-08-20 19:40] VITALS: BP 133/66; PULSE 70; RESP 18
[2017-08-21] MEDS: IBUPROFEN 600 MG TAB PO SCH ×4 (00:37→18:01)
[2017-08-21 04:10] VITALS: BP 113/71; PULSE 70; RESP 17
[2017-08-21 08:00] VITALS: BP 135/84; PULSE 67; RESP 16
[2017-08-21] MEDS: FERROUS SULFATE (EC) 325 MG TAB PO SCH (11:50)
[2017-08-21] MEDS: SENNA/DOCUSATE NA (8.6MG/50MG) TAB PO SCH (11:51)
[2017-08-21] MEDS ORDERED: MEASLES,MUMPS,RUBELLA VACCINE INJ SC* ONE (12:00)
[2017-08-21 16:00] VITALS: BP 128/67; PULSE 85; RESP 18
--- NOTE | 2017-08-26 19:51 | CONS ---
Date/Time of Note Date/Time of Note DATE: 08/26/17 TIME: 19:49 Consultation Date/Type/Reason Admit Date/Time Aug 18, 2017 at 05:17 Initial Consult Date 08/19/17 Type of Consultation: Ansthesiology Reason for Consultation Follow up 24 HR Interval Summary Free Text/Dictation Pt seen and examined on 08/19/17 was POD#1 s/p repeat c/s. Pt received spinal duramorph for post-op pain and stated her pain was adequately controlled. No N/V /D/C/GUERRERO/Numbness in extremities. DAYTON BILLINGS Aug 26, 2017 19:51
== END 2017-08-21 18:05 | disposition home or self-care (01) | DRG 766 ==
LOC: L-D 05:17 → PP1 11:24
PROVIDERS: ADMIT Obstetrics & Gynecology; ATTEND Obstetrics & Gynecology
PROC: 3E0P3VZ Introduction of Hormone into Female Reproductive, Percutaneous Approach (ICD-10-PCS; 2017-08-18)
PROC: 10D00Z1 Extraction of Products of Conception, Low, Open Approach (ICD-10-PCS; principal; 2017-08-18 07:30)
DX: O34.211 Maternal care for low transverse scar from previous cesarean delivery (principal); Z37.0 Single live birth; Z3A.39 39 weeks gestation of pregnancy
CPT/HCPCS: 85025; 85610; 85730; 86592; 86850; 86900; 86901; 87340; 90686; 99464; J0690; J1885; J2274; J2370; J2590; J3010; J7120

== ENCOUNTER 2017-10-29 08:56 | Emergency (ER) | END 2017-10-29 13:05 | disposition home or self-care (01) ==